=== PATIENT | male | born 1955 | race Caucasian/White ===

== ENCOUNTER 2016-11-05 09:12 | Emergency (ER) | payer MEDICARE, OTHER ==
[~2016-11-05] VITALS: Ht 180.3 cm; Wt 77.3 kg
[~2016-11-05 09:12] MED LIST: AMLO-511 PO; ARIP10TA14 PO; AZIT250T6 PO; OXYM30SP3 NASAL
[2016-11-05] MEDS ORDERED: LISI-660 PO (09:22)
[2016-11-05] MEDS ORDERED: LURA40 PO (09:22)
[2016-11-05] MEDS ORDERED: QUET25TA PO (09:22)
[2016-11-05] MEDS ORDERED: HYDROCODONE/ACETAMINOPHEN 10-325 MG TABLET PO ONE (10:45)
[2016-11-05 11:55] VITALS: BP 132/84
== END 2016-11-05 12:13 | disposition home or self-care (01) ==
LOC: EMS 09:18
DX: S43.402A Unspecified sprain of left shoulder joint, initial encounter (principal); M25.512 Pain in left shoulder; F17.210 Nicotine dependence, cigarettes, uncomplicated; F41.9 Anxiety disorder, unspecified; F31.9 Bipolar disorder, unspecified; J44.9 Chronic obstructive pulmonary disease, unspecified; F20.9 Schizophrenia, unspecified; Z88.8 Allergy status to other drugs, medicaments and biological substances; X58.XXXA Exposure to other specified factors, initial encounter; Y93.89 Activity, other specified; Y92.9 Unspecified place or not applicable; Y99.9 Unspecified external cause status
CPT/HCPCS: 73030; 99284; A4566

== ENCOUNTER 2017-09-06 11:52 | Inpatient (IN) | payer MEDICARE, MEDICAID ==
[~2017-09-06] VITALS: Ht 180.3 cm; Wt 74.8 kg
[~2017-09-06 11:52] MED LIST changes: -AMLO-511 PO; -ARIP10TA14 PO; -AZIT250T6 PO; +LISI-660 PO; +LURA40 PO; -OXYM30SP3 NASAL; +QUET25TA PO
[2017-09-06 12:38] LABS: BASOPHILS % (AUTO) 0.7 % (0.0-2.0); EOSINOPHILS % (AUTO) 1.5 % (1.0-6.0); HEMATOCRIT 47.4 % (41-53); HEMOGLOBIN 16.1 g/dL (13.5-17.5); LYMPHOCYTES # (AUTO) 2.8 K/uL (1.0-4.8); MEAN CORPUSCULAR HEMOGLOBIN 32.9 pg (26.0-34.0); MEAN CORPUSCULAR VOLUME 97 fL (80-100); MONOCYTES # (AUTO) 0.9 K/uL (0.1-1.0); MONOCYTES % (AUTO) 8.9 % (2.0-9.0); NEUTROPHILS % (AUTO) 60.9 % (40.0-70.0); PLATELET COUNT (AUTO) 179 K/uL (150-450); RED BLOOD CELL COUNT(AUTO) 4.89 MIL/uL (4.50-5.90); RED CELL DISTRIBUTION WIDTH 13.4 % (11.5-14.5); WHITE BLOOD COUNT (AUTO) 9.8 K/uL (4.5-11.0)
[2017-09-06 12:51] LABS: ANION GAP 4 mmol/L (8-16); CALCIUM, TOTAL 8.6 mg/dL (8.8-10.5); CARBON DIOXIDE 31 mmol/L (22-29); CHLORIDE 103 mmol/L (98-107); CREATININE 0.88 mg/dL (0.60-1.30); GLOMERULAR FILTR. RATE CALC > 60 mL/min (>60); POTASSIUM 4.6 mmol/L (3.5-5.1); SODIUM SERUM 138 mmol/L (136-145); UREA NITROGEN, BLOOD 11 mg/dL (7-18)
[2017-09-06 13:06] LABS: ALANINE AMINOTRANSFERASE 26 U/L (12-78); ALBUMIN 3.6 g/dL (3.4-5.0); ASPARTATE AMINOTRANSFERASE 20 U/L (15-37); BILIRUBIN,TOTAL 0.3 mg/dL (0.1-1.0); THYROID STIMULATING HORMONE 0.93 uIU/mL (0.36-3.74); TOTAL PROTEIN, SERUM 7.3 g/dL (6.4-8.2)
[2017-09-06] MEDS ORDERED: LORazepam 2 MG TABLET PO ONE (13:15)
[2017-09-06] MEDS ORDERED: ZOLPIDEM TARTRATE 10 MG TABLET PO PRN (13:30)
[2017-09-06] MEDS ORDERED: QUEtiapine FUMARATE 100 MG TABLET PO PRN (13:30)
[2017-09-06 14:40] LABS: CHOL/HDL RATIO 5.8 (4.2-7.3)
[2017-09-06] MEDS ORDERED: PNEUMOCOCCAL VACCINE POLYVALENT 0.5 ML VIAL [PPSV23] IM ONE (16:15)
[2017-09-06 20:15] VITALS: BP 135/74
[2017-09-06 20:16] VITALS: BP 135/74
[2017-09-06] MEDS: ASENAPINE 5 MG SUBLINGUAL TABLET SL SCH (20:35)
[2017-09-06 21:00] VITALS: BP 129/85
[2017-09-07] MEDS ORDERED: INFLUENZA VIRUS VACCINE QVS 2017-18 (3YR+)/PF 60 MCG/0.5 ML SYRINGE IM ONE (06:45)
[2017-09-07 06:49] VITALS: BP 115/87
[2017-09-07 08:00] VITALS: BP 145/74
[2017-09-07] MEDS ORDERED: MAG HYDROX/AL HYDROX/SIMETH ES 30 ML SUSPENSION UDCUP PO PRN (08:45)
[2017-09-07] MEDS ORDERED: BENZOCAINE/MENTHOL LOZENGE MM PRN (08:45)
[2017-09-07] MEDS ORDERED: MAGNESIUM HYDROXIDE SUSPENSION 30 ML UDCUP PO PRN (08:45)
[2017-09-07] MEDS ORDERED: LOPERAMIDE HCL 2 MG CAPSULE PO PRN (08:45)
[2017-09-07] MEDS ORDERED: BACITRACIN 28.4 GM OINTMENT TP PRN (08:45)
[2017-09-07] MEDS ORDERED: ACETAMINOPHEN 325 MG TABLET PO PRN (08:45)
[2017-09-07] MEDS ORDERED: CloNIDine HCL 0.1 MG TABLET PO PRN (08:45)
[2017-09-07] MEDS ORDERED: IBUPROFEN 600 MG TABLET PO PRN (08:45)
[2017-09-07] MEDS ORDERED: PETROLATUM,WHITE 71 GM JELLY TP PRN (08:45)
[2017-09-07] MEDS ORDERED: ONDANSETRON HCL 4 MG TABLET PO PRN (08:45)
[2017-09-07] MEDS ORDERED: ALBUTEROL SULFATE HFA 90 MCG/PUFF 8 GM INHALER IH PRN (08:45)
[2017-09-07] MEDS: OMEGA-3/DHA/EPA/FISH OIL 1,000 MG CAPSULE PO SCH (10:09)
[2017-09-07] MEDS: LISINOPRIL 5 MG TABLET PO SCH (10:09)
[2017-09-07] MEDS ORDERED: LISI-661 PO (12:15)
[2017-09-07] MEDS ORDERED: NICOTINE POLACRILEX 2 MG LOZENGE PO PRN (12:15)
[2017-09-07 13:27] VITALS: BP 125/69
[2017-09-07] MEDS: LORazepam 2 MG TABLET PO PRN (15:41)
[2017-09-07 16:05] VITALS: BP 142/81
[2017-09-07] MEDS: ASENAPINE 5 MG SUBLINGUAL TABLET SL SCH (20:36)
[2017-09-08 06:36] VITALS: BP 131/94
[2017-09-08] MEDS: LISINOPRIL 5 MG TABLET PO SCH (08:19)
[2017-09-08] MEDS: OMEGA-3/DHA/EPA/FISH OIL 1,000 MG CAPSULE PO SCH (08:19)
[2017-09-08 09:32] VITALS: BP 116/81
[2017-09-08] MEDS: LORazepam 2 MG TABLET PO PRN (12:43)
[2017-09-08 16:16] VITALS: BP 113/76
[2017-09-08] MEDS: ASENAPINE 10 MG SUBLINGUAL TABLET SL SCH (20:46)
[2017-09-09 02:29] VITALS: BP 138/70
[2017-09-09 06:10] VITALS: BP 116/86
[2017-09-09] MEDS: LORazepam 2 MG TABLET PO PRN ×2 (06:18→17:08)
[2017-09-09] MEDS: LISINOPRIL 5 MG TABLET PO SCH (08:22)
[2017-09-09] MEDS: OMEGA-3/DHA/EPA/FISH OIL 1,000 MG CAPSULE PO SCH (08:22)
[2017-09-09 08:35] VITALS: BP 119/69
[2017-09-09 16:08] VITALS: BP 121/60
[2017-09-09] MEDS: ASENAPINE 10 MG SUBLINGUAL TABLET SL SCH (20:07)
[2017-09-09] MEDS ORDERED: OMEG-12 PO (22:25)
[2017-09-09] MEDS ORDERED: ASEN10TA8 SL (22:27)
[2017-09-10 01:18] VITALS: BP 123/69
[2017-09-10] MEDS: LISINOPRIL 5 MG TABLET PO SCH (08:34)
[2017-09-10] MEDS: OMEGA-3/DHA/EPA/FISH OIL 1,000 MG CAPSULE PO SCH (08:34)
[2017-09-10 08:45] VITALS: BP 117/89
[2017-09-10] MEDS ORDERED: ALBU8HFA IH (10:40)
== END 2017-09-10 13:00 | disposition home or self-care (01) | DRG 885 ==
LOC: EMS 11:53 → B2S 13:56 → B2X 15:37
PROVIDERS: ADMIT Psychiatry & Neurology Psychiatry; ATTEND Psychiatry & Neurology Psychiatry
PROC: 3E0234Z Introduction of Serum, Toxoid and Vaccine into Muscle, Percutaneous Approach (ICD-10-PCS; principal; 2017-09-07)
DX: F25.0 Schizoaffective disorder, bipolar type (principal); E83.51 Hypocalcemia; R45.851 Suicidal ideations; E78.5 Hyperlipidemia, unspecified; F41.9 Anxiety disorder, unspecified; G47.00 Insomnia, unspecified; I10 Essential (primary) hypertension; J44.9 Chronic obstructive pulmonary disease, unspecified; F17.210 Nicotine dependence, cigarettes, uncomplicated; K59.00 Constipation, unspecified; M19.90 Unspecified osteoarthritis, unspecified site; Z91.5 Personal history of self-harm; Z88.8 Allergy status to other drugs, medicaments and biological substances; Z23 Encounter for immunization
CPT/HCPCS: 84443; 90471; 99285; G0480

== ENCOUNTER 2019-09-29 15:41 | Emergency (ER) | payer MEDICARE, OTHER ==
[~2019-09-29] VITALS: Ht 177.8 cm; Wt 81.8 kg
[~2019-09-29 15:41] MED LIST changes: +ALBU8HFA IH; +ASEN10TA8 SL; +CEFX1I IV; -LISI-660 PO; +LISI-661 PO; -LURA40 PO; +OMEG-12 PO; +PRED10 PO; +PRED20 PO; -QUET25TA PO
[2019-09-29 18:42] VITALS: BP 133/94
== END 2019-09-29 19:35 | disposition home or self-care (01) ==
LOC: EMS 15:42
DX: S39.012A Strain of muscle, fascia and tendon of lower back, initial encounter (principal); J40 Bronchitis, not specified as acute or chronic; F41.9 Anxiety disorder, unspecified; F31.9 Bipolar disorder, unspecified; J44.9 Chronic obstructive pulmonary disease, unspecified; F20.9 Schizophrenia, unspecified; F17.210 Nicotine dependence, cigarettes, uncomplicated; Z79.899 Other long term (current) drug therapy; Z88.8 Allergy status to other drugs, medicaments and biological substances; X58.XXXA Exposure to other specified factors, initial encounter; Y93.89 Activity, other specified; Y92.89 Other specified places as the place of occurrence of the external cause; Y99.8 Other external cause status
CPT/HCPCS: 99406

== ENCOUNTER 2023-04-25 21:44 | Emergency (ER) | payer OTHER ==
[~2023-04-25] VITALS: Ht 177.8 cm; Wt 80.0 kg
[~2023-04-25 21:44] MED LIST changes: +ALBU18HF12 IH; -ALBU8HFA IH; -ASEN10TA8 SL; -CEFX1I IV; +CLIN-142 PO; +LEVO-72 PO; -LISI-661 PO; +PRED-554 PO; +PRED-729 PO; -PRED10 PO; -PRED20 PO
[2023-04-25 22:05] VITALS: TEMP 98.7
[2023-04-25 22:18] LABS: BASOPHILS % (AUTO) 0.8 % (0.0-2.0); EOSINOPHILS % (AUTO) 1.2 % (1.0-6.0); HEMOGLOBIN 14.9 g/dL (13.5-17.5); LYMPHOCYTES # (AUTO) 2.4 K/uL (1.0-4.8); LYMPHOCYTES % (AUTO) 23.6 % (22.0-44.0); MEAN CORPUSCULAR HEMOGLOBIN 31.8 pg (26.0-34.0); MEAN CORPUSCULAR HGB CONC 32.4 G/dL (31.0-37.0); MEAN CORPUSCULAR VOLUME 98 fL (80-100); MONOCYTES # (AUTO) 1.1 K/uL (0.1-1.0); NEUTROPHILS # (AUTO) 6.5 K/uL (1.8-7.7); NEUTROPHILS % (AUTO) 63.4 % (40.0-70.0); PLATELET COUNT (AUTO) 279 K/uL (150-450); RED BLOOD CELL COUNT(AUTO) 4.69 MIL/uL (4.50-5.90); RED CELL DISTRIBUTION WIDTH 13.5 % (11.5-14.5)
[2023-04-25 22:22] LABS: ANION GAP 8 mmol/L (8-16); CALCIUM, TOTAL 8.5 mg/dL (8.8-10.5); CARBON DIOXIDE 31 mmol/L (22-29); CHLORIDE 101 mmol/L (98-107); CREATININE 0.84 mg/dL (0.60-1.30); GLOMERULAR FILTR. RATE CALC > 60 mL/min (>60); GLUCOSE,RANDOM 118 mg/dL (70-110); POTASSIUM 4.3 mmol/L (3.5-5.1); SODIUM SERUM 140 mmol/L (136-145)
[2023-04-25 22:28] LABS: ALANINE AMINOTRANSFERASE 8 U/L (12-78); ALBUMIN 3.3 g/dL (3.4-5.0); ALKALINE PHOSPHATASE 136 U/L (46-116); ASPARTATE AMINOTRANSFERASE 17 U/L (15-37); BILIRUBIN,TOTAL 0.2 mg/dL (0.1-1.0); LIPASE 21 U/L (16-77)
[2023-04-25 22:48] LABS: APPEARANCE,URINE CLEAR (CLEAR); BILIRUBIN,URINE NEGATIVE (NEGATIVE); GLUCOSE, URINE (UA) NEGATIVE (NEGATIVE); KETONES,URINE NEGATIVE (NEGATIVE); LEUKOCYTE ESTERASE ,URINE NEGATIVE (NEGATIVE); NITRATE,URINE NEGATIVE (NEGATIVE); OCCULT BLOOD,URINE NEGATIVE (NEGATIVE); PH,URINE 6.5 (5.0-8.0); PROTEIN,URINE NEGATIVE (NEGATIVE); SPECIFIC GRAVITIY, URINE 1.009 (1.003-1.030); UROBILINOGEN,URINE <=1.0 mg/dL (<=1.0)
[2023-04-25] MEDS ORDERED: SODIUM CHLORIDE 0.9% 1,000 ML IV ONE (23:15)
[2023-04-26 01:18] LABS: PROTHROMBIN TIME 10.8 SEC (9.4-11.6)
[2023-04-26 01:41] LABS: COVID AG,FIA SOURCE NASOPHARYNGEAL
[2023-04-26] MEDS ORDERED: HYDROmorphone HCL 2 MG/ML SYRINGE IVP ONE ×2 (02:30)
[2023-04-26 04:12] VITALS: BP 155/87; PULSE 68; RESP 18
== END 2023-04-26 04:25 | disposition short-term general hospital (02) ==
LOC: EMS 21:44
DX: R10.32 Left lower quadrant pain (principal); I10 Essential (primary) hypertension; F41.9 Anxiety disorder, unspecified; F31.9 Bipolar disorder, unspecified; J44.9 Chronic obstructive pulmonary disease, unspecified; F20.9 Schizophrenia, unspecified; I48.91 Unspecified atrial fibrillation; F17.210 Nicotine dependence, cigarettes, uncomplicated; Z20.822 Contact with and (suspected) exposure to COVID-19
CPT/HCPCS: 99285; 74176; 96361; 87426; 80053; 81003; 83690; 84484; 85025; 85610; 85730; 86850; 86900; 86901; 93005; 96374; 96376; 36415; J1170 ×2; J7030